=== PATIENT | female | born 1960 ===

== ENCOUNTER 2017-09-03 08:22 | Emergency (ER) | payer OTHER, MEDICAID ==
[2017-09-03 08:22] VITALS: BMI 39.0
[2017-09-03 08:39] VITALS: RESP 18
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
[2017-09-03 11:03] VITALS: BP 112/77; PULSE 81; TEMP 98.4
[2017-09-03 11:07] VITALS: O2SAT 99
== END 2017-09-03 11:03 | disposition home or self-care (01) ==
LOC: C.ER 08:22
DX: T14.8XXA Other injury of unspecified body region, initial encounter (principal); V03.90XA Pedestrian on foot injured in collision with car, pick-up truck or van, unspecified whether traffic or nontraffic accident, initial encounter; Y92.410 Unspecified street and highway as the place of occurrence of the external cause; E11.9 Type 2 diabetes mellitus without complications; E03.9 Hypothyroidism, unspecified; M81.0 Age-related osteoporosis without current pathological fracture